=== PATIENT | male | born 1975 | race American Indian/Alaskan Native ===

== ENCOUNTER 2018-03-12 08:21 | Emergency (ER) | payer OTHER ==
[2018-03-12] MEDS ORDERED: DECADRON IM ONE (10:51)
[2018-03-12] MEDS ORDERED: ATROVENT IH ONE (10:51)
[2018-03-12] MEDS ORDERED: PROVENTIL IH ONE ×2 (10:52→12:41)
[2018-03-12] MEDS ORDERED: ZITHROMAX PO ONE (10:52)
--- NOTE | 2018-03-12 10:55 | Emergency Department Report ---
Blank Doc - Documentation Documentation: Patient presents with asthma exacerbation. Reports symptoms for 3 days. Reports coughing dry cough no fever. Patient reports last ER visit for asthma approximately one year ago. Patient reports typically for his asthma he receives nebulizer treatment and steroid shot. Plan nebulization in the ER and steroid treatment and monitoring. If patient improves plan discharge with outpatient follow-up.
--- NOTE | 2018-03-12 13:15 | Emergency Department Report ---
ED Asthma HPI - General Chief Complaint: Adult Asthma Stated Complaint: CP/JENNIE Time Seen by Provider: 03/12/18 10:50 Source: patient Mode of arrival: Ambulatory Limitations: No Limitations - History of Present Illness Initial Comments: Pt is a 42 yo male who presents with wheezing and usual attack . pt states he has not had a fever. Pt states he has been using his Albuterol. Pt denied recent fever, illness, or other complaints. MD Complaint: "asthma attack", wheezing Asthma History: childhood onset Severity: similar to prior Context: other (change in weather precipitates the attacks per pt) - Related Data Previous Rx's Medication Instructions Recorded Last Taken Type ALBUTEROL NEB's [Proventil 0.083% 2.5 mg IH TID PRN #100 neb 03/12/18 Unknown Rx NEBS] predniSONE [Deltasone] 40 mg PO QDAY #10 tab 03/12/18 Unknown Rx Allergies Allergy/AdvReac Type Severity Reaction Status Date / Time shellfish derived Allergy Angioedema Verified 03/12/18 08:30 ED Review of Systems ROS: Stated complaint: CP/JENNIE Other details as noted in HPI Comment: All other systems reviewed and negative Respiratory: cough, wheezing. denies: stridor ED Past Medical Hx - Past Medical History Hx Asthma: Yes - Surgical History Past Surgical History?: No - Social History Smoking Status: Never Smoker Substance Use Type: None - Medications Home Medications: Home Medications Medication Instructions Recorded Confirmed Last Taken Type ALBUTEROL NEB's [Proventil 0.083% 2.5 mg IH TID PRN #100 neb 03/12/18 Unknown Rx NEBS] predniSONE [Deltasone] 40 mg PO QDAY #10 tab 03/12/18 Unknown Rx ED Physical Exam - General Limitations: No Limitations General appearance: alert, in no apparent distress - Head Head exam: Present: atraumatic, normocephalic - Eye Eye exam: Present: normal appearance, PERRL, EOMI - ENT ENT exam: Present: normal exam, normal orophraynx - Neck Neck exam: Present: normal inspection - Respiratory Respiratory exam: Absent: wheezes, rhonchi, stridor - Extremities Exam Extremities exam: Present: normal inspection, full ROM - Skin Skin exam: Present: warm, dry, normal color ED Course Vital Signs 03/12/18 03/12/18 03/12/18 08:30 11:12 13:54 Temperature 99.6 F 98.6 F Pulse Rate 94 H 107 H Respiratory 20 24 20 Rate Blood Pressure 151/84 Blood Pressure 131/68 [Left] O2 Sat by Pulse 96 94 92 Oximetry ED Medical Decision Making - Medical Decision Making pt's lungs are clear; sat is 97 on room air; pt stated he feels better and needs only more vials for his home neb machine, but no inhalers needed - Differential Diagnosis asthma, pneumonia Critical care attestation.: If time is entered above; I have spent that time in minutes in the direct care of this critically ill patient, excluding procedure time. ED Disposition Clinical Impression: Asthma Disposition: DC-01 TO HOME OR SELFCARE Is pt being admited?: No Does the pt Need Aspirin: No Condition: Stable Instructions: Asthma (ED) Additional Instructions: return sooner if worse or if further concerns Prescriptions: ALBUTEROL NEB's [Proventil 0.083% NEBS] 2.5 mg IH TID PRN #100 neb PRN Reason: Wheezing predniSONE [Deltasone] 40 mg PO QDAY #10 tab Referrals: PRIMARY CARE, [Primary Care Provider] - 3-5 Days [facility] [Outside] - 3-5 Days Time of Disposition: 15:38
[2018-03-12 16:26] VITALS: BP 121/66
== END 2018-03-12 16:25 | disposition home or self-care (01) ==
LOC: ED 08:21
DX: J45.909 Unspecified asthma, uncomplicated (principal); Z91.013 Allergy to seafood
CPT/HCPCS: 93005; 93010; 94640; 96372; 99284; J1100